=== PATIENT | female | born 1990 | race Two or more races ===

== ENCOUNTER 2017-09-07 21:09 | Emergency (ER) | payer OTHER ==
[~2017-09-07] VITALS: Ht 170.2 cm; Wt 66.1 kg
[~2017-09-07 21:09] MED LIST: DILAUDID4 MG PO; Flagyl PO; ILOTYCIN1 GM RIGHT EYE; Lasix PO; Methadone HCl PO; Motrin PO; PRENATABS RX T1 EACH; Procardia XL,Adalat PO; TAMIFLU75 MG PO
[2017-09-07 21:22] VITALS: BP 108/75
[2017-09-07 22:38] LABS: AMPHETAMINE NEGATIVE (500 ng/mL); BARBITURATES NEGATIVE (200 ng/mL); BENZODIAZEPINES NEGATIVE (150 ng/mL); COCAINE NEGATIVE (150 ng/mL); INTERNAL CONTROLS VALID? YES; METHADONE NEGATIVE (200 ng/mL); METHAMPHETAMINE NEGATIVE (500 ng/mL); OPIATES (MORPHINE) NEGATIVE (100 ng/mL); OXYCODONE NEGATIVE (100 ng/mL); PHENCYCLIDINE NEGATIVE (25 ng/mL); PROPOXYPHENE NEGATIVE (300 ng/mL); THC CANNABINOIDS NEGATIVE (50 ng/mL); TRICYCLIC ANTIDEPRESSANTS NEGATIVE (300 ng/mL)
== END 2017-09-07 23:23 | disposition left against medical advice (07) ==
LOC: EME 21:09
DX: R45.851 Suicidal ideations (principal); R51 Headache; R10.9 Unspecified abdominal pain; Z53.21 Procedure and treatment not carried out due to patient leaving prior to being seen by health care provider
CPT/HCPCS: 80048; 84702; 85027; G0480

== ENCOUNTER 2017-09-08 10:43 | Inpatient (IN) | payer OTHER ==
[~2017-09-08] VITALS: Ht 170.2 cm; Wt 65.9 kg
[2017-09-08 11:50] LABS: HEMATOCRIT 38.5 % (36.0-46.0); MCV 87.9 FL (83-99); MEAN PLAT.VOLUME 9.7 uM^3 (9.5-12.4); PLATELET COUNT 312 K/uL (156-360); RBC DIS.WIDTH-SD 45.1 % (39-53); RED BLOOD COUNT 4.38 M/uL (3.80-5.20); WHITE BLOOD COUNT 8.7 K/uL (4.1-10.2)
[2017-09-08 11:58] LABS: CHLORIDE 108 mEq/L (99-109); SODIUM 139 mEq/L (136-147)
[2017-09-08 12:00] LABS: GLUCOSE 98 mg/dL (70-99)
[2017-09-08 12:01] LABS: ANION GAP 13 MEQ/L (2-14)
[2017-09-08 12:02] LABS: TOTAL BILIRUBIN 0.7 mg/dL (0.0-1.0)
[2017-09-08 12:03] LABS: SERUM ETHYL ALCOHOL < 10 mg/dL
[2017-09-08 12:04] LABS: ALKALINE PHOSPHATASE 45 IU/L (3-129); GFR ESTIMATE (CALCULATED) > 59 mL/min/
[2017-09-08 12:05] LABS: UREA NITROGEN (BUN) 11 mg/dL (9-23)
[2017-09-08 12:16] LABS: QUANTITATIVE HCG < 4.0 MIU/ML
[2017-09-08 14:10] LABS: ADD MIUA? YES; BILIRUBIN NEGATIVE; BLOOD MODERATE; COLOR YELLOW ((YELLOW)); GLUCOSE (STRIP) NEGATIVE; KETONES NEGATIVE; LEUKOCYTES TRACE; NITRITE NEGATIVE; PROTEIN (STRIP) NEGATIVE; SPECIFIC GRAVITY 1.016 (1.000-1.030)
[2017-09-08 14:18] LABS: BACTERIA RARE /HPF; CALCIUM OXALATE CRYSTALS 1+ /HPF; EPITHELIAL CELLS 1+ /HPF; MUCUS 1+ /LPF; RED BLOOD CELLS 20-30 /HPF (0-5)
[2017-09-08 14:19] LABS: AMPHETAMINE NEGATIVE (500 ng/mL); BARBITURATES NEGATIVE (200 ng/mL); BENZODIAZEPINES NEGATIVE (150 ng/mL); COCAINE NEGATIVE (150 ng/mL); INTERNAL CONTROLS VALID? YES; METHADONE NEGATIVE (200 ng/mL); METHAMPHETAMINE NEGATIVE (500 ng/mL); OPIATES (MORPHINE) NEGATIVE (100 ng/mL); OXYCODONE NEGATIVE (100 ng/mL); PHENCYCLIDINE NEGATIVE (25 ng/mL); PROPOXYPHENE NEGATIVE (300 ng/mL); THC CANNABINOIDS NEGATIVE (50 ng/mL); TRICYCLIC ANTIDEPRESSANTS NEGATIVE (300 ng/mL)
[2017-09-08 15:46] VITALS: BP 112/68
[2017-09-08 16:31] VITALS: BP 112/68
[2017-09-09 07:37] VITALS: BP 108/61
[2017-09-09 15:59] VITALS: BP 120/66
== END 2017-09-09 17:04 | disposition left against medical advice (07) | DRG 881 ==
LOC: EME 10:43 → EDOF 13:23 → 1WEST 13:23 → ENRESERV 15:34 → 1WEST 09-09 17:04
PROVIDERS: Emergency Medicine
DX: F43.21 Adjustment disorder with depressed mood (principal); R45.851 Suicidal ideations; F11.10 Opioid abuse, uncomplicated; F12.90 Cannabis use, unspecified, uncomplicated; F31.9 Bipolar disorder, unspecified; F90.9 Attention-deficit hyperactivity disorder, unspecified type; F17.200 Nicotine dependence, unspecified, uncomplicated; Z81.1 Family history of alcohol abuse and dependence; Z81.8 Family history of other mental and behavioral disorders
CPT/HCPCS: 80053; 81003; 84702; 85027; 90686; 90839; 97165 GO; 99281; 99285; G0480; Q0177

== ENCOUNTER 2017-10-08 11:20 | Emergency (ER) | payer OTHER ==
[~2017-10-08] VITALS: Ht 172.7 cm; Wt 67.5 kg
[2017-10-08 12:04] LABS: HEMATOCRIT 39.5 % (36.0-46.0); MCHC 33.2 G/DL (30.0-36.0); MCV 90.4 FL (83-99); MEAN PLAT.VOLUME 9.6 uM^3 (9.5-12.4); PLATELET COUNT 280 K/uL (156-360); RBC DIS.WIDTH-CV 13.6 % (11.8-14.6); RBC DIS.WIDTH-SD 45.9 % (39-53); RED BLOOD COUNT 4.37 M/uL (3.80-5.20); WHITE BLOOD COUNT 12.6 K/uL (4.1-10.2)
[2017-10-08 12:13] LABS: CHLORIDE 107 mEq/L (99-109); POTASSIUM 3.9 mEq/L (3.7-5.4); SODIUM 141 mEq/L (136-147)
[2017-10-08 12:15] LABS: GLUCOSE 98 mg/dL (70-99)
[2017-10-08 12:17] LABS: ANION GAP 13 MEQ/L (2-14)
[2017-10-08 12:19] LABS: GFR ESTIMATE (CALCULATED) > 59 mL/min/
[2017-10-08 12:20] LABS: UREA NITROGEN (BUN) 13 mg/dL (9-23)
[2017-10-08 12:26] LABS: TROP-I INTERPRETATION NEGATIVE; TROPONIN-I < 0.01 ng/mL (0.0-0.30)
[2017-10-08 12:30] LABS: QUANTITATIVE HCG < 4.0 MIU/ML
[2017-10-08 13:39] LABS: D-DIMER ELISA < 150.00 ng/mLDDU (<230)
[2017-10-08 14:14] LABS: TROP-I INTERPRETATION NEGATIVE; TROPONIN-I < 0.01 ng/mL (0.0-0.30)
[2017-10-08 14:25] VITALS: BP 121/62
== END 2017-10-08 14:30 | disposition home or self-care (01) ==
LOC: EME 11:20
PROVIDERS: Nurse Practitioner Family
DX: R07.89 Other chest pain (principal); R09.1 Pleurisy; M25.512 Pain in left shoulder; R00.0 Tachycardia, unspecified; F17.200 Nicotine dependence, unspecified, uncomplicated
CPT/HCPCS: 71020; 80048; 84484; 84702; 85027; 85379; 93005; 99281; 99285

== ENCOUNTER 2018-01-31 11:45 | Emergency (ER) | payer OTHER ==
[~2018-01-31] VITALS: Ht 170.2 cm; Wt 68.8 kg
[2018-01-31] MEDS ORDERED: GABAPENTIN400 MG PO (12:49)
[2018-01-31] MEDS ORDERED: GABAPENTIN800 MG PO (12:49)
[2018-01-31] MEDS ORDERED: LAMICTAL200 MG PO (12:50)
[2018-01-31] MEDS ORDERED: ABILIFY5 MG PO (12:50)
[2018-01-31] MEDS ORDERED: LAMICTAL100 MG PO (12:50)
[2018-01-31] MEDS ORDERED: BIRTH CONTROL (12:51)
[2018-01-31] MEDS ORDERED: DICLOFENAC SODI50 MG PO (12:51)
[2018-01-31] MEDS ORDERED: REFLUX MED (12:52)
[2018-01-31] MEDS ORDERED: BENADRYL25 MG PO (14:40)
[2018-01-31] MEDS ORDERED: PEPCID20 MG PO (14:40)
[2018-01-31 14:48] VITALS: BP 118/72
== END 2018-01-31 14:49 | disposition home or self-care (01) ==
LOC: EME 11:45
DX: T78.40XA Allergy, unspecified, initial encounter (principal); Z88.2 Allergy status to sulfonamides
CPT/HCPCS: 87651 90; 99281; 99284; J1100